=== PATIENT | male | born 1955 | race African-American/Black ===

== ENCOUNTER 2017-08-25 03:25 | Observation (INO) | payer OTHER ==
[~2017-08-25] VITALS: Ht 177.8 cm; Wt 102.3 kg
--- NOTE | ~2017-08-25 | EC ---
PATIENT:BERNARDA GUADARRAMA DATE OF SERVICE: 08/25/17 SEX: M MEDICAL RECORD: [id number] DATE OF : 53 LOCATION:D.M2 D.212 AGE OF PATIENT: 61 ADMISSION DATE: 08/25/17 REFERRING PHYSICIAN: INTERPRETING PHYSICIAN: LANA MORTENSEN MD ECHOCARDIOGRAM REPORT ECHO CHARGES 4 ECHO COMPLETE CLINICAL DIAGNOSIS: CHEST PAIN, HX OF HTN ECHOCARDIOGRAPHIC MEASUREMENTS (adult normal given) AC root (d.<3.7cm) 3.4 cm LV Septum d (<1.2 cm> 1.6 cm Valve Excursion 1.8 cm LV Septum (systole) 1.8 cm Left Atria (s.<4.0cm> 4.8 cm LVPW d(<1.2cm) 1.8 cm RV (d.<2.3cm) 3.3 cm LVPW (sytole) 2.2 cm LV diastole(<5.6CM) 5.0 cm MV E-F(>70mm/sec) cm LV systole 3.6 cm LVOT Diameter 2.0 cm MV exc.(>10mm) 1.7 cm Est.ejection fraction (50-75%) % Pericardial Effusion N DOPPLER: LVIT cm/sec A 86.0 cm/sec E 61.0 cm/sec LA cm/sec RVSP 32 mmHg LVOT 83 cm/sec AOP1/2T 262 m/s Asc. Ao 121 cm/sec RVOT 65 cm/sec RA cm/sec PA 95 cm/sec AV Gradient Peak 5.90 mmHg AV Mean 3.23 mmHg AV Area 2.2 cm MV Gradient Peak 4.16 mmHg MV Mean 1.45 mmHg MV Area cm COMMENTS: Center Rep: Mya FISCHER Door Slinger: 1 Dr. Mortensen TAPE# PACS DATE OF SERVICE: 08/26/2017 Echocardiogram FINDINGS: 1. Left ventricular chamber size is within normal limits. Left ventricular systolic function is normal. Overall ejection fraction estimated at 60%. 2. Left atrium, right atrium, and right ventricular chamber sizes are mildly dilated. Left atrium measures 4.8 cm. 3. Valvular structures have normal structure and motion. ECHOCARDIOGRAM REPORT [id number] BERNARDA GUADARRAMA 4. Doppler interrogation reveals mild aortic insufficiency, mild mitral regurgitation, and mild tricuspid regurgitation. No other valvular insufficiency or stenosis. 5. No evidence of pericardial effusion or left ventricular thrombus. TRANSINT:[id number] Voice Confirmation ID: [id number] DOCUMENT ID: [id number] LANA MORTENSEN MD at 1323 CC: [id number] DICTATION DATE: 08/27/17 1016 MAINTENANCE SHOP MANAGER: 08/27/17 1248 DIS IN 08/26/17 [place] [id number] [place] [id number]
[~2017-08-25 03:25] MED LIST: NORVASC10 MG PO; ZESTRIL20 MG PO
[2017-08-25 04:01] LABS: BASOPHILS 0.5 % (0-2); EOSINOPHILS 4.4 % (0-7); HEMATOCRIT 44.6 % (42.0-54.0); HEMOGLOBIN 15.5 g/dL (13.5-17.5); IMMATURE GRANULOCYTES 0.2 % (0-5); LYMPHOCYTES 24.6 % (15-50); MCH 29.8 pg (26.0-34.0); MCHC 34.8 g/dL (31.0-37.0); MCV 85.8 fL (80.0-100.0); MEAN PLATELET VOLUME 11.2 fL (7.4-10.4); MONOCYTES 7.1 % (2-11); NEUTROPHILS 63.2 % (40-80); PLATELET COUNT 172 10x3/uL (130-400); RDW 14.3 % (11.5-14.5); WBC 4.1 10x3/uL (4.8-10.8)
[2017-08-25 04:26] LABS: ALBUMIN 3.7 g/dL (3.4-5.0); ALKALINE PHOSPHATASE 64 U/L (46-116); ALT (SGPT) 33 U/L (10-68); BILIRUBIN - TOTAL 0.73 mg/dL (0.2-1.3); CALCIUM 8.8 mg/dL (8.5-10.1); CARBON DIOXIDE 24.3 mmol/L (21.0-32.0); CHLORIDE - SERUM 102 mmol/L (98-107); CREATININE - SERUM 1.8 mg/dL (0.6-1.3); POTASSIUM - SERUM 3.6 mmol/L (3.5-5.1); PROTEIN - SERUM 6.6 g/dL (6.4-8.2); SODIUM 139 mmol/L (136-145); UREA NITROGEN 16 mg/dL (7-18); eGFR NON AFRICAN AMERICAN 41 mL/min (90-120)
[2017-08-25 04:37] LABS: CALC OSMOLALITY 284 mosm/kg (275-300); CHOLESTEROL, TOTAL 192 mg/dL (0-200); CKMB 1.5 U/L (0.0-3.6); CREATINE KINASE 223 UL (21-232); GLUCOSE 204 mg/dL (74-106); HDL CHOLESTEROL 65 mg/dL (32-96); LDL CHOLESTEROL 113 mg/dL (0-100); LDL-HDL RATIO 1.7 ratio (1.5-3.5); TRIGLYCERIDE 71 mg/dL (30-200); TROPONIN-I < 0.017 ng/mL (0.000-0.060)
[2017-08-25 05:30] LABS: UDS - AMPHET NEGATIVE QUAL (NEGATIVE); UDS - BARB NEGATIVE QUAL (NEGATIVE); UDS - BENZO NEGATIVE QUAL (NEGATIVE); UDS - COCAINE NEGATIVE QUAL (NEGATIVE); UDS - OPIATE NEGATIVE QUAL (NEGATIVE); UDS - PCP NEGATIVE QUAL (NEGATIVE); UDS - THC NEGATIVE QUAL (NEGATIVE)
[2017-08-25 05:33] LABS: APPEARANCE CLEAR (CLEAR); BILIRUBIN NEGATIVE (NEGATIVE); COLOR YELLOW (YELLOW); GLUCOSE 50 mg/dL (NEGATIVE); KETONE NEGATIVE (NEGATIVE); NITRITE NEGATIVE (NEGATIVE); PROTEIN NEGATIVE (NEGATIVE); UROBILINOGEN NORMAL (NORMAL)
[2017-08-25 07:38] VITALS: BP 156/87; Ht 177.8 cm; Wt 102.3 kg
[2017-08-25 08:10] VITALS: BP 151/91
[2017-08-25 10:50] LABS: TROPONIN-I 0.038 ng/mL (0.000-0.060)
[2017-08-25 11:23] VITALS: BP 191/96
[2017-08-25 15:31] VITALS: BP 186/90
[2017-08-25 16:13] LABS: CKMB 1.4 U/L (0.0-3.6); CREATINE KINASE 184 UL (21-232); TROPONIN-I 0.028 ng/mL (0.000-0.060)
[2017-08-25 20:00] VITALS: BP 159/86
[2017-08-25 23:37] LABS: CKMB 0.9 U/L (0.0-3.6); CREATINE KINASE 147 UL (21-232)
[2017-08-26 04:00] VITALS: BP 173/80
[2017-08-26 06:19] LABS: ANION GAP 8.7 mmol/L (8-16); CALCIUM 8.8 mg/dL (8.5-10.1); CARBON DIOXIDE 29.3 mmol/L (21.0-32.0); CREATININE - SERUM 1.4 mg/dL (0.6-1.3)
[2017-08-26 06:26] LABS: BASOPHILS 0.6 % (0-2); EOSINOPHILS 5.9 % (0-7); HEMATOCRIT 46.1 % (42.0-54.0); HEMOGLOBIN 15.1 g/dL (13.5-17.5); IMMATURE GRANULOCYTES 0.6 % (0-5); LYMPHOCYTES 34.8 % (15-50); MCH 28.2 pg (26.0-34.0); MCHC 32.8 g/dL (31.0-37.0); MEAN PLATELET VOLUME 11.5 fL (7.4-10.4); MONOCYTES 9.1 % (2-11); PLATELET COUNT 184 10x3/uL (130-400); RBC 5.36 10x6/uL (4.20-6.10); RDW 14.5 % (11.5-14.5); WBC 3.5 10x3/uL (4.8-10.8)
[2017-08-26 07:42] VITALS: BP 138/74
[2017-08-26 11:26] VITALS: BP 132/76
[2017-08-26] MEDS ORDERED: NORVASC10 MG PO (12:46)
[2017-08-26] MEDS ORDERED: ZESTRIL20 MG PO (12:46)
[2017-08-26] MEDS ORDERED: ASPIRIN325 MG PO (12:47)
== END 2017-08-26 15:51 | disposition home or self-care (01) ==
LOC: D.ER 03:25 → D.M2 05:53 → OBSVTIME 05:53 → D.M2 08-26 15:51
PROVIDERS: Emergency Medicine; Family Medicine
DX: I16.9 Hypertensive crisis, unspecified (principal); E78.5 Hyperlipidemia, unspecified; I24.8 Other forms of acute ischemic heart disease

== ENCOUNTER 2018-12-24 11:30 | Observation (INO) | payer MEDICAID ==
[2018-12-24] VITALS (11 sets, daily range): BP systolic 162–209; BP diastolic 88–132; BMI 31.6
[~2018-12-24] VITALS: Ht 177.8 cm; Wt 99.8 kg
--- NOTE | ~2018-12-24 | OP ---
PATIENT NAME: BERNARDA GUADARRAMA MEDICAL RECORD: [id number] :53 LOCATION:CONG [facility] ADMISSION DATE:12/24/18 SURGEON: BERTHA FLORES MD DATE OF OPERATION: 12/25/2018 PROCEDURE: Left heart catheterization, selective coronary angiography, right radial approach. CATHETERS: Radial sheath, [place] catheter. The procedure was well tolerated. The patient was returned to reeder. Sheath was removed. TR band was placed. FINDINGS: Left ventriculography in 30-degree OCHOA view shows mild global hypo. Overall, LV function minimally reduced at 40% to 45%. CORONARY ANATOMY: LEFT MAIN: Left main is free of disease. LAD: Free of disease in the diagonal system. CIRCUMFLEX: Free of disease in the marginal system. RIGHT CORONARY ARTERY: Dominant artery, gives rise to PDA and this is free of disease. IMPRESSION: Nonischemic probable hypertensive cardiomyopathy. We will start JUANY inhibitor, beta blockade. Suspect LV function with blood pressure control should improve. TRANSINT:[id number] Voice Confirmation ID: [id number] DOCUMENT ID: [id number] BERTHA FLORES MD CC: [id number] DICTATION DATE: 12/25/18 1316 COMPOUNDER FLAVORINGS: 12/25/[address] [facility] [address] [place] [address]
--- NOTE | ~2018-12-24 | HEMODYNAMI ---
PATIENT:BERNARDA GUADARRAMA MEDICAL RECORD: [id number] : 53 [facility] [id number] ADMISSION DATE: 12/24/18 Generatedon:12/25/201813:15 Patient name: BERNARDA GUADARRAMA Patient #: [id number] SSN: DO B: 1955 Date of study: 12/25/2018 Page: Of Hemodynamic Procedure Report Patient Data Patient Demographics Procedure consent was obtained First Name: BERNARDA Gender: Male Last Name: THIERRY : 1955 Middle Initial: OMAR Age: 63 year(s) Patient #: [id number] Race: Black Additional ID: [id number] Contact details [address]: [address] [place] [address] State: [place] City: [place] Zip code: [address] Admission Admission Data Admission Date: 12/24/2018 Admission Time: 16:40 Room #: D.2122 Lab Results Lab Result Date: 12/25/2018 Lab Result Time: 0:00 Biochemistry Name Units Result Min Max BUN mg/dl 14 --(--*-)-- 7 18 Creatinine mg/dl 1.6 --(----)-* 0.6 1.3 CBC Name Units Result Min Max Hemoglobin g/dl 15.8 --(--*-)-- 13.5 17.5 Procedure Procedure Types Cath Procedure Diagnostic Procedure LHC LHC w/Coronaries Procedure Description Procedure Date Procedure Date: 12/25/2018 Procedure Start Time: 13:04 Procedure End Time: 13:11 Procedure Staff Name Function Mj Castano MD Performing Physician Sarah Paiz RT Monitor Haven Solis RT Scrub Ivelisse Montalvo RN Nurse Procedure Data Cath Procedure Fluoroscopy Diagnostic fluoroscopy Total fluoroscopy Time: 2.3 time: 2.3 min min Diagnostic fluoroscopy Total fluoroscopy dose: 583 dose: 583 mGy mGy Contrast Material Contrast Material Type Amount (ml) Isovue 300 52 Entry Location Entry Primary Successful Side Size Upsize Upsize Entry Closure Anderson ccessful Closure Location (Fr) 1 (Fr) 2 (Fr) Remarks Device Remarks Radial Right 6 Fr Mechanical artery Short Compression Estimated blood loss: 5 ml Diagnostic catheters Device Type Used For End Catheter Placement DIAGNOSTIC [place] 110cm 5 Multi-vessel Fr catheter ([id number]) Angiography Procedure Complications No complications Procedure Medications Medication Administration Route Dosage 0.9% NaCl I.V. 100 ml/hr Oxygen etCO2 Nasal cannula 2 l/min Lidocaine 2% added to field 20 Heparin Flush Bag added to field 2 bags (1000units/500ml NS) Radial Cocktail added to field 1 syringe (Verapamil 2mg/Nitro 400mcg/Heparin 1500units) Versed I.V. 2 mg Fentanyl I.V. 50 mcg Fentanyl I.V. 50 mcg Hemodynamics Rest HGB: 15.8 (g/dl) Heart Rate: 65 (bpm) Pressure Samples Time Site Value (mmHg) Purpose Heart Use Rate(bpm) 13:06 LV 118/3,1 Snapshot 115 Gradients Valve Time Site Site Mean SEP/DFP Peak To Heart Use 1 2 (mmHg) (sec/min) Peak Rate (mmHg) (bpm) Aortic 13:07 LV AO 79 Snapshots Pre Cath Intra NCS Post Cath Vital Signs Time Heart Resp SPO2 etCO2 NIBP (mmHg) Rhythm Pain Sedation Rate (ipm) (%) (mmHg) Status Level (bpm) 12:52:45 66 26 98 30.8 Measuring NSR 0 (11) 10(A) , No pain 12:53:53 66 17 96 33 186/107(163) NSR 0 (11) 10(A) , No pain 12:58:37 65 16 98 1.5 185/96(130) NSR 0 (11) 10(A) , No pain 13:03:24 59 11 98 27 178/91(165) NSR 0 (11) 9(A) , No pain 13:08:07 74 16 97 22.5 162/102(130) NSR 0 (11) 10(A) , No pain 13:12:43 62 19 90 36 162/89(115) NSR 0 (11) 10(A) , No pain Medications Time Medication Route Dose Verified Delivered Reason Notes E ffectiveness by by 12:51:06 0.9% NaCl I.V. 100 Mj [place]o used for ml/hr St Hugo Montalvo procedure RN 12:51:14 Oxygen etCO2 2 l/min Mj [place] used for Nasal [facility] procedure cannula RN 12:51:19 Lidocaine 2% added 20ml Mj Barker for local to vial [facility] anesthetic field MD B[place] 12:51:24 Heparin Flush added 2 bags Mj Barker used for Bag to [facility] procedure (1000units/500ml field MD [place] NS) 12:51:38 Radial Cocktail added 1 Mj Barker used for (Verapamil to syringe [facility] procedure 2mg/Nitro field MD [place] 400mcg/Heparin 1500units) 12:56:09 Versed I.V. 2 mg Mj [place] for EyadHugo Montalvo sedation RN 12:56:20 Fentanyl I.V. 50 mcg Mj [place] for EyadHugo Montalvo sedation RN 13:02:47 Fentanyl I.V. 50 mcg Mj [place] for [place] sedation gauge machine operator Log Time Note 12:22:14 Diagnostic Cath Status : Elective 12:22:33 Sarah Paiz RT(R) sent for patient. Start room use. 12:22:34 Time tracking: Regular hours (M-F 7:00 - 5:00) 12:22:38 Plan of Care:Hemodynamics will remain stable., Cardiac rhythm will remain stable., Comfort level will be maintained., Respiratory function will remain adequate., Patient/ family verbilizes understanding of procedure., Procedure tolerated without complication., Recovers from procedure without complications.. 12:26:43 Signed procedure consent form obtained from patient. 12:43:10 Patient received from Med II to CCL 1 Alert and oriented. Tansferred to table in Supine position. 12:43:11 Warm blankets applied, and elise hugger turned on for patient comfort. 12:43:12 Correct patient and procedure confirmed by team. 12:43:12 ECG and BP/O2 sat monitors applied to patient. 12:50:57 Vital chart was started 12:51:06 0.9% NaCl 100 ml/hr I.V. was administered by Ivelisse Montalvo RN; used for procedure; 12:51:14 Oxygen 2 l/min etCO2 Nasal cannula was administered by Ivelisse Montalvo RN; used for procedure; 12:51:19 Lidocaine 2% 20ml vial added to field was administered by Mj Castano MD; for local anesthetic; 12:51:24 Heparin Flush Bag (1000units/500ml NS) 2 bags added to field was administered by Mj Castano MD; used for procedure; 12:51:38 Radial Cocktail (Verapamil 2mg/Nitro 400mcg/Heparin 1500units) 1 syringe added to field was administered by Mj Castano MD; used for procedure; 12:53:57 Baseline sample Acquired. 12:54:01 Rhythm: sinus rhythm 12:54:03 Full Disclosure recording started 12:54:07 H&P Date Dictated: 12/25/2018 Within 30 days and on chart., H&P Addendum completed by physician on day of procedure. (MUST COMPLETE FOR ALL OUTPATIENTS). 12:54:09 Pre-procedure instructions explained to patient. 12:54:09 Pre-op teaching completed and patient verbalized understanding. 12:54:10 Family in waiting room. 12:54:12 Patient NPO since Midnight. 12:54:14 Is the patient allergic to Iodine/contrast media? No. 12:54:15 Was the patient premedicated? No 12:54:17 Is patient on blood thinner?No 12:54:18 Patient diabetic? No. 12:54:21 Previous problem with sedation/anesthesia? No ? 12:54:23 Snore? Yes 12:54:24 Sleep apnea? No 12:54:25 Deviated septum? No 12:54:26 Opens mouth fully? Yes 12:54:27 Sticks out tongue? Yes 12:54:29 Airway obstruction? No ? 12:54:40 Dentures? Yes partials;in tight 12:54:45 Pre procedure: right dorsailis pedis pulse 2+ Normal; easily identifiable; not easily obliterated 12:54:47 Pre procedure: left dorsailis pedis pulse 2+ Normal; easily identifiable; not easily obliterated 12:54:48 Patient pain scale 0/10 ?. 12:54:55 IV patent on arrival in left forearm with 0.9% NaCl at [facility]. 12:54:58 Lab results completed and on chart. 12:55:03 Right Radial & Right Groin area was prepped with chlora-prep and draped in sterile fashion 12:55:04 Alarms reviewed by R. N. 12:55:05 Sharps counted by scrub and verified by R.N. 12:55:06 Physician arrived 12:55:07 --------ALL STOP TIME OUT------ 12:55:07 Final Timeout: patient, procedure, and site verified with staff and physician. All members of the team are in agreement. 12:55:09 Right Radial & Right Groin site verified by team. 12:55:13 Maximum allowable Isovue 300 dose 300ml. Physician notified. (300ml for normal creatinines. For patients with creatinine of 1.7 or higher multiply weight(kg) x 5 divided by creatinine.) 12:55:23 Fire Safety Assessment: A--An alcohol-based skin anteseptic being used preoperatively., C--Open oxygen or nitrous oxide is being used., D--An ESU, laser, or fiber-optic light is being used., E--There are other possible contributors. 12:55:28 Physical assessment completed. ASA score P 2 - A patient with mild systemic disease as per Mj Castano MD. 12:55:32 Sedation plan: IV Moderate Sedation Medication:Versed, Fentanyl 12:55:39 Use device set Radial Dx or PCI 12:55:41 ACIST Syringe (81195) opened to sterile field. 12:55:41 Medline Cath Pack ([id number]) opened to sterile field. 12:55:41 Bag Decanter (2002) opened to sterile field. 12:55:42 DIAGNOSTIC WIRE .035 260cm J wire (649753) opened to sterile field. 12:55:42 ACIST Hand Control (00580) opened to sterile field. 12:55:43 ACIST Manifold (15788) opened to sterile field. 12:55:43 Tegaderm 4 x 4 (1626W) opened to sterile field. 12:55:44 MBrace Wrist Support (208969819) opened to sterile field. 12:55:45 SHEATH 6FR Slender (65-1060) opened to sterile field. 12:56:09 Versed 2 mg I.V. was administered by Ivelisse Montalvo RN; for sedation; 12:56:20 Fentanyl 50 mcg I.V. was administered by Ivelisse Montalvo RN; for sedation; 12:57:37 Lab Result : Hemoglobin 15.8 g/dl 12:57:37 Lab Result : Creatinine 1.6 mg/dl 12:57:37 Lab Result : BUN 14 mg/dl 13:02:47 Fentanyl 50 mcg I.V. was administered by Ivelisse Montalvo RN; for sedation; 13:03:41 Procedure started. 13:04:00 Local anesthetic to right radial artery with Lidocaine 2% by Mj Castano MD.INITIAL ACCESS ONLY 13:04:19 A 6 Fr Short sheath was inserted into the Right Radial artery 13:04:31 A DIAGNOSTIC [place] 110cm 5 Fr catheter (858700) was advanced over the wire and used for Multi-vessel Angiography. 13:07:05 LV hemodynamics recorded. 13:07:06 LV gram done using OCHOA 13:07:10 Injector settings: Ml/sec: 5, Volume: 15, 13:07:22 EF : 40 % 13:08:18 RCA angiography performed. 13:08:22 Injector settings: Ml/sec: 3, Volume: 6, 13:08:34 LCA angiography performed. 13:08:37 Injector settings: Ml/sec: 3, Volume: 6, 13:09:33 Catheter removed. 13:10:02 TR BAND Large ([id number]) opened to sterile field. 13:10:15 Sheath removed intact; hemostasis achieved with Mechanical Compression to the Right Radial artery. 13:10:17 Procedure ended.(Physican Out) 13:10:42 Fluoroscopy time 02.30 minutes. 13:10:46 Flurop Dose total: 583 13:10:46 Fluoroscopy dose: 583 mGy 13:10:50 Contrast amount:Isovue 300 52ml. 13:10:51 Sharps counted by scrub and verified by R.N. 13:10:55 TR band inflated with 12cc of air. 13:11:00 Insertion/operative site no bleeding no hematoma. 13:11:05 Post right radial artery:stable 13:11:06 Post Procedure Pulses reassessed and unchanged 13:11:09 Post procedure rhythm: unchanged. 13:11:12 Estimated blood loss: 5 ml 13:11:14 Post procedure instruction explained to patient.Patient verbalizes understanding. 13:11:14 Patient needs reinforcement of post procedure teaching. 13:11:21 Procedure and supply charges have been captured, reviewed, submitted and are correct. 13:11:26 Procedure Complication : No complications 13:11:30 Vital chart was stopped 13:11:34 See physician's report for complete and final results. 13:11:43 Report given to Pre/Post Procedure Room. 13:11:46 Patient transfered to Pre/Post Procedure Room with Stretcher. 13:11:48 Procedure ended. 13:11:48 Full Disclosure recording stopped 13:11:52 End room use (Document Last) Device Usage Item Name Manufacture Quantity Catalog Hospital Part Current Minimal Lot# / Number Charge Number Stock Stock Serial# Code ACIST Acist 1 22689 776908 286926 396786 20 Syringe Medical (43050) Systems Inc Medline Medline 1 [id number] 380809 96861 174845 5 Cath Pack ([id number]) Bag Microtek 1 2001S 294594 41089 561024 5 Decanter Medical Inc. () DIAGNOSTIC [place] 1 303927 663411 431176 550527 30 WIRE .035 260cm J wire (516516) ACIST Hand Acist 1 59962 211676 037030 978401 5 Control Medical (96285) Systems Inc ACIST Acist 1 49872 357512 378965 009935 5 Manifold Medical (44164) Systems Inc Tegaderm 4 3M 1 1626W 263914 315099 995572 5 x 4 (1626W) MBrace Advanced 1 140-0250-00 912143 30472 016120 5 Wrist Vascular Support Dynamics ([id number]) SHEATH 6FR Terumo 1 [id number] 404284 965545 055629 5 Slender (80-1060) DIAGNOSTIC Terumo 1 40-5013 488031 261562 793549 5 [place] 110cm 5 Fr catheter (680896) TR BAND Terumo 1 [id number] 829986 697715 557291 40 Large ([id number]) Signature Audit [place] Stage Time Signature Unsigned Intra-Procedure 12/25/2018 Sarah Paiz 1:15:15 PM RT(R) Signatures Monitor : Sarah Paiz RT Signature : Date : Time : [facility] [address] [place] [address]
[~2018-12-24 11:30] MED LIST changes: +ASPIRIN325 MG PO
[2018-12-24 11:57] LABS: EOSINOPHILS 7.9 % (0-7); HEMATOCRIT 46.6 % (42.0-54.0); HEMOGLOBIN 15.8 g/dL (13.5-17.5); LYMPHOCYTES 33.2 % (15-50); MCH 28.6 pg (26.0-34.0); MCHC 33.9 g/dL (31.0-37.0); MCV 84.3 fL (80.0-100.0); MEAN PLATELET VOLUME 10.8 fL (7.4-10.4); MONOCYTES 7.9 % (2-11); PLATELET COUNT 213 10x3/uL (130-400); RBC 5.53 10x6/uL (4.20-6.10); RDW 13.9 % (11.5-14.5)
[2018-12-24 12:07] LABS: INR 0.98 (0.85-1.17); PROTIME 12.5 SECONDS (11.6-15.0)
--- NOTE | 2018-12-24 12:08 | NUR ---
PT STATES THAT LEFT SIDED CHEST PRESSURE AND SOB IMPROVED FOLLOWING FIRST SL NITRO, RATED DISCOMFORT 7/10, REDUCED TO 3/10 FOLLOWING FIRST DOSE. WILL CONTINUE TO MONITOR FOLLOWING SECOND DOSE OF SL NITRO.
[2018-12-24 12:10] LABS: ALBUMIN 3.9 g/dL (3.4-5.0); ALKALINE PHOSPHATASE 50 U/L (46-116); ALT (SGPT) 60 U/L (10-68); BILIRUBIN - TOTAL 0.79 mg/dL (0.2-1.3); CALC OSMOLALITY 279 mosm/kg (275-300); CALCIUM 9.3 mg/dL (8.5-10.1); CARBON DIOXIDE 29.6 mmol/L (21.0-32.0); CHLORIDE - SERUM 103 mmol/L (98-107); CREATININE - SERUM 1.6 mg/dL (0.6-1.3); GLUCOSE 145 mg/dL (74-106); POTASSIUM - SERUM 3.8 mmol/L (3.5-5.1); PROTEIN - SERUM 7.4 g/dL (6.4-8.2); SODIUM 138 mmol/L (136-145); UREA NITROGEN 14 mg/dL (7-18); eGFR NON AFRICAN AMERICAN 46 mL/min (90-120)
[2018-12-24 12:20] LABS: CKMB 2.1 U/L (0.0-3.6); CREATINE KINASE 179 UL (21-232); MAGNESIUM - SERUM 2.2 mg/dL (1.8-2.4); PRO BNP 501 pg/mL (0-125)
[2018-12-24 12:21] LABS: TROPONIN-I < 0.017 ng/mL (0.000-0.060)
--- NOTE | 2018-12-24 14:11 | NUR ---
PT OBSERVED SITTIG IN BED, HIGH CONTI'S, RESPIRATIONS EVEN AND UNLABORED. NO SIGNS OF DISTRESS. CALL LIGHT IN REACH, WILL CONTINUE TO MONITOR.
[2018-12-24 15:32] LABS: CKMB 1.3 U/L (0.0-3.6); CREATINE KINASE 163 UL (21-232); TROPONIN-I < 0.017 ng/mL (0.000-0.060)
--- NOTE | 2018-12-24 17:15 | NUR ---
WHEN THIS NURSE CALLED REPORT TO [place], RECEIVING NURSE AT 1656 PT'S BP: 177/97. THIS NURSE REASSESSED BP APPROX. 5 MIN AGO PRIOR TO TRANSPORTING PT AND BP: 192/109. EDP NOTIFIED AND CHARGE NURSE NOTIFIED OF INCREASED BP. THIS NURSE INSTRUCTED TO CONTINUE WITH TRANSPORT TO ASSIGNED ROOM 2121. RELAY TELEGRAPHER NOTIFIED BY CHARGE NURSE MOISES Ramos RN AND STATED THAT PT MAY BE TRANSPORTED TO ASSIGNED ROOM.
[2018-12-24 17:32] LABS: CKMB 1.7 U/L (0.0-3.6); CREATINE KINASE 172 UL (21-232)
[2018-12-24 17:33] LABS: TROPONIN-I < 0.017 ng/mL (0.000-0.060)
--- NOTE | 2018-12-24 18:14 | NUR ---
RECIEVED FROM ER. B/P STILL HIGH AT 209/132. EMILIANO PATERSON SUPERVISIOR NOTIFIED OF FINDINGS. STATED THE FLOOR STAFF NEEDED TO CALL THE DOCTOR. DR ELLIOTT CALLED AND ORDERS RECIEVED. REPORT FROM ER BEFORE BRING THE PT THAT B/P WAS 177/97. PT IS ALERT AND ORIENTED. C/O OF SOME DIZZINESS AND A HEADACHE. LEFT HAND IV WITH NS AT KV0. TELEMERTY SHOWS SR 75. WILL MONITOR
--- NOTE | 2018-12-24 19:10 | NUR ---
BEDSIDE REPORT RECEIVED. PT IS AAO. WILL CALL FOR ASSIST WHEN NEEDED. NAME AND DATE PLACED ON BOARD. LEFT AC PIV INFUSING ORDERED. PT WILL CALL FOR ASSIST WHEN NEEDED. WILL CPOC
--- NOTE | 2018-12-24 21:28 | NUR ---
EDUCATION PROVIDED ON NIGHT MEDICATIONS. PT VERBALIZED UNDERSTANDING AND DENIES ANY QUESTIONS. WILL CPOC
--- NOTE | 2018-12-24 21:30 | NUR ---
ADMIT HISTORY COMPLETE.
--- NOTE | 2018-12-24 22:00 | NUR ---
CONSENTS SIGNED AND IN CHART. EXPLAINED PROCEDURE AND ANSWERED QUESTIONS AND CONCERNS. PT VERBALIZED UNDERSTANDING AND DENIES ANY QUESTIONS OR CONCERNS AT THIS TIME. CONSENTS PLACED INTO CHART. PT WILL CALL FOR ASSIST WHEN NEEDED. WILL CPOC
--- NOTE | 2018-12-24 23:44 | NUR ---
BP IS 176/100 PRN BLOOD PRESSURE MEDICATION GIVEN. PT DENIES ANY NEEDS. DENIES ANY QUESTIONS OR CONCERNS. WILL CPOC
[2018-12-25] VITALS: BP 176/100
[2018-12-25 01:21] LABS: CKMB 1.3 U/L (0.0-3.6); CREATINE KINASE 131 UL (21-232); TROPONIN-I 0.024 ng/mL (0.000-0.060)
--- NOTE | 2018-12-25 04:18 | NUR ---
I have reviewed this patient and I concur with the Shift Assessment completed by the Licensed Practical Nurse today this shift.
[2018-12-25 04:30] VITALS: BP 143/87
[2018-12-25 07:00] LABS: ALBUMIN 3.3 g/dL (3.4-5.0); ALKALINE PHOSPHATASE 44 U/L (46-116); ALT (SGPT) 45 U/L (10-68); BILIRUBIN - TOTAL 0.93 mg/dL (0.2-1.3); CALC OSMOLALITY 281 mosm/kg (275-300); CALCIUM 8.6 mg/dL (8.5-10.1); CHLORIDE - SERUM 104 mmol/L (98-107); CKMB 0.9 U/L (0.0-3.6); CREATINE KINASE 116 UL (21-232); CREATININE - SERUM 1.5 mg/dL (0.6-1.3); GLUCOSE 96 mg/dL (74-106); POTASSIUM - SERUM 3.7 mmol/L (3.5-5.1); PROTEIN - SERUM 6.6 g/dL (6.4-8.2); SODIUM 141 mmol/L (136-145); UREA NITROGEN 16 mg/dL (7-18); eGFR NON AFRICAN AMERICAN 50 mL/min (90-120)
[2018-12-25 07:02] LABS: BASOPHILS 0.8 % (0-2); EOSINOPHILS 8.3 % (0-7); HEMATOCRIT 45.5 % (42.0-54.0); HEMOGLOBIN 14.9 g/dL (13.5-17.5); IMMATURE GRANULOCYTES 0.3 % (0-5); LYMPHOCYTES 31.5 % (15-50); MCH 27.9 pg (26.0-34.0); MCHC 32.7 g/dL (31.0-37.0); MEAN PLATELET VOLUME 11.1 fL (7.4-10.4); MONOCYTES 8.3 % (2-11); NEUTROPHILS 50.8 % (40-80); PLATELET COUNT 196 10x3/uL (130-400); RBC 5.35 10x6/uL (4.20-6.10); WBC 3.6 10x3/uL (4.8-10.8)
--- NOTE | 2018-12-25 07:29 | NUR ---
PT DENIES ANY NEEDS. NO S/S OF DISTRESS. HAS BEEN NPO SINCE MIDNIGHT, IS ALOUD A LIGHT BREAKFAST,. PT WILL CALL FOR ASSIST WHEN NEEEDED. WILL CPOC
--- NOTE | 2018-12-25 07:30 | NUR ---
ASSESSMENT COMPLETED. ALERT AND ORIENTED. TELEMERTY SHOWS SR. LEFT HAND SL. NPO FOR CATH. FAMILY AT BEDSIDE. SR UP WITH FAMILY AT BEDSIDE
[2018-12-25 09:40] VITALS: BP 167/99
[2018-12-25 12:33] VITALS: Ht 177.8 cm; Wt 99.8 kg
[2018-12-25 13:14] VITALS: BP 167/81
--- NOTE | 2018-12-25 13:37 | NUR ---
PT WENT TO [employer]. WILL BE DISCHARGED FROM THERE POST CATH
--- NOTE | 2018-12-25 13:40 | NUR ---
PATIENT RESTING, VSS ON 2L NC. RIGHT TR BAND IN PLACE, NO S/S OF BLEEDING OR HEMATOMA. NO C/O PAIN, NUMBNESS, OR TINGLING. NO N/V.
--- NOTE | 2018-12-25 13:42 | MORECARE ---
CASE MANAGEMENT DISCHARGE SUMMARY PATIENT: BERNARDA GUADARRAMA UNIT: [id number] ADM DATE: 12/24/18 AGE: 63 : [birth year] SEX: M ROOM/BED: D.2122 AUTHOR: ANTOINETTE KRISHNAMURTHY PHYSICIAN: REFERRING PHYSICIAN: BERTHA FLORES MD DATE OF SERVICE: 12/25/18 Discharge Plan Patient Name: BERNARDA GUADARRAMA [facility] [facility] 1955 Planned Disposition: Home Anticipated Discharge Date: 12/25/18 Discharge Date: Expected LOS: 1 Initial Reviewer: [email or web address] Initial Review Date: 12/25/2018 Generated: 12/25/18 2:41 pm Patient Name: BERNARDA GUADARRAMA Page [id number] at 1342 All edits/amendments must be made on the electronic document DICTATION DATE: 12/25/18 1341 MOLDING MACHINE OPERATOR HELPER: GURPREET 12/25/18 1341 RPT#: [id number] DC DATE: STATUS: ADM IN [facility] [address] [place] [address] END OF REPORT
[2018-12-25] MEDS ORDERED: HYDROCHLOROTHIA25 MG PO (13:44)
[2018-12-25] MEDS ORDERED: BISOPROLOL-HCTZ1 TA5 PO (13:46)
[2018-12-25] MEDS ORDERED: LISINOPRIL40 MG PO (13:46)
--- NOTE | 2018-12-25 14:10 | NUR ---
BEGIN AIR REMOVAL PROTOCOL FOR TR BAND, 3CC OF AIR REMOVED. NO S/S OF BLEEDING OR HEMATOMA. PATIENT EATING SANDWICH AND DRINKING WATER, NO N/V. VSS ON ROOM AIR. FAMILY PRESENT AT BEDSIDE.
--- NOTE | 2018-12-25 14:40 | NUR ---
3CC OF AIR REMOVED FROM TR BAND, NO S/S OF BLEEDING OR HEMATOMA. NO C/O PAIN, NUMBNESS, OR TINGLING. VSS ON ROOM AIR.
--- NOTE | 2018-12-25 15:10 | NUR ---
REMAINING AIR REMOVED FROM TR BAND, NO S/S OF BLEEDING OR HEMATOMA. NO C/O PAIN, NUMBNESS, OR TINGLING. VSS ON ROOM AIR. IV REMOVED. WRITTEN AND VERBAL EDUCATION GIVEN TO PATIENT REGARDING DISCHARGE INSTRUCTIONS AND MEDICATION COMPLIANCE, PATIENT VOICES UNDERSTANDING.
--- NOTE | 2018-12-25 15:30 | NUR ---
PATIENT TRANSPORTED VIA WHEELCHAIR TO CAR WITH FAMILY DRIVING, ALL BELONGINGS WITH PATIENT. RIGHT RADIAL DRESSING IS CDI, NO S/S OF BLEEDING OR HEMATOMA.
== END 2018-12-25 15:15 | disposition home or self-care (01) ==
LOC: D.ER 11:30 → OBSVTIME 16:40 → D.M2 16:40 → D.CLR 16:40 → D.EDHOLD 16:40 → D.M2 16:47 → D.CLR 12-25 13:25
PROVIDERS: Family Medicine; ADMIT Internal Medicine Interventional Cardiology; ATTEND Internal Medicine Interventional Cardiology
DX: I16.0 Hypertensive urgency (principal); E78.5 Hyperlipidemia, unspecified; I42.9 Cardiomyopathy, unspecified; E66.9 Obesity, unspecified; Z68.31 Body mass index [BMI] 31.0-31.9, adult

== ENCOUNTER → 2019-01-28 13:01 | Outpatient (CLI) | payer MEDICAID ==
[2018-12-25 12:33] VITALS: BMI 31.5
[~2019-01-28 13:01] MED LIST changes: +BISOPROLOL-HCTZ1 TA5 PO; +HYDROCHLOROTHIA25 MG PO; +LISINOPRIL40 MG PO
--- NOTE | 2019-01-29 13:44 | EC ---
PATIENT:BERNARDA GUADARRAMA DATE OF SERVICE: 01/28/19 SEX: M MEDICAL RECORD: [id number] DATE OF : 53 LOCATION:[facility] AGE OF PATIENT: 63 ADMISSION DATE: 01/28/19 REFERRING PHYSICIAN: INTERPRETING PHYSICIAN: LANA MORTENSEN MD ECHOCARDIOGRAM REPORT ECHO CHARGES 4 ECHO COMPLETE Date: 01/28/19 CLINICAL DIAGNOSIS: CARDIOMYOPATHY/HTN ECHOCARDIOGRAPHIC MEASUREMENTS (adult normal given) AC root (d.<3.7cm) 3.8 cm LV Septum d (<1.2 cm> 1.8 cm Valve Excursion 2.1 cm LV Septum (systole) 2.4 cm Left Atria (s.<4.0cm> 3.6 cm LVPW d(<1.2cm) 1.4 cm RV (d.<2.3cm) 2.2 cm LVPW (sytole) 2.0 cm LV diastole(<5.6CM) 5.9 cm MV E-F(>70mm/sec) cm LV systole 3.8 cm LVOT Diameter 2.0 cm MV exc.(>10mm) cm Est.ejection fraction (50-75%) % DOPPLER: LVIT cm/sec A 54.0 cm/sec E 50.0 cm/sec LA cm/sec RVSP 28.0 mmHg LVOT 95.0 cm/sec AOP1/2T m/s Asc. Ao 134 cm/sec RVOT 51.0 cm/sec RA cm/sec PA 86.0 cm/sec AV Gradient Peak 7.2 mmHg AV Mean 3.8 mmHg AV Area 2.3 cm MV Gradient Peak 2.0 mmHg MV Mean 0.50 mmHg MV Area cm COMMENTS: OP - HC Manager Content: Demi LUOE Drug Clerk: 1 Dr. Mortensen TAPE# PACS Pericardial Effusion N DATE OF SERVICE: 01/28/2019 PROCEDURE: Echocardiogram. FINDINGS: 1. Left ventricular chamber size is mildly dilated. Left ventricular systolic function is normal. Overall ejection fraction estimated at 55%. 2. Left atrium is within normal limits at 3.6 cm. Right atrium and right ventricular chamber sizes are mildly dilated. 3. Valvular structures have normal structure and motion. ECHOCARDIOGRAM REPORT [id number] BERNARDA GUADARRAMA 4. Doppler interrogation reveals trace aortic insufficiency, mild mitral regurgitation, mild tricuspid regurgitation, no other valvular insufficiency or stenosis. Pulmonary systolic pressure is normal estimated 28 mmHg. 5. No evidence of pericardial effusion or left ventricular thrombus. TRANSINT:[id number] Voice Confirmation ID: [id number] DOCUMENT ID: [id number] LNAA MORTENSEN MD at 1344 CC: [id number] DICTATION DATE: 01/29/19 1059 DAMAGE APPRAISER: 01/29/19 1116 DEP CLI 01/28/19 [place] [id number]
== END | disposition home or self-care (01) ==
LOC: D.HCCARDIO 13:01
PROVIDERS: ATTEND Internal Medicine Interventional Cardiology
DX: I42.0 Dilated cardiomyopathy (principal)

== ENCOUNTER → 2019-08-30 17:45 | Outpatient (CLI) | payer MEDICARE, MEDICAID ==
[2018-12-25 12:33] VITALS: BMI 31.5
[2019-08-30 18:54] LABS: CHOL - HDL RATIO 5.3 ratio (2.3-4.9); LDL-HDL RATIO 3.9 ratio (1.5-3.5)
== END | disposition home or self-care (01) ==
LOC: D.LABREF 17:45
PROVIDERS: ATTEND Internal Medicine Interventional Cardiology
DX: I10 Essential (primary) hypertension (principal)

== ENCOUNTER → 2020-01-05 18:53 | Outpatient (CLI) | payer OTHER ==
[2018-12-25 12:33] VITALS: BMI 31.5
[2020-01-05 21:50] LABS: CHOL - HDL RATIO 2.6 ratio (2.3-4.9); LDL-HDL RATIO 1.2 ratio (1.5-3.5)
== END | disposition home or self-care (01) ==
LOC: D.LABREF 18:53
PROVIDERS: ATTEND Nurse Practitioner
DX: E78.5 Hyperlipidemia, unspecified (principal)

== ENCOUNTER → 2020-04-04 17:15 | Outpatient (CLI) | payer MEDICARE ==
[2018-12-25 12:33] VITALS: BMI 31.5
[2020-04-04 17:44] LABS: CHOL - HDL RATIO 2.6 ratio (2.3-4.9); LDL-HDL RATIO 1.2 ratio (1.5-3.5)
== END | disposition home or self-care (01) ==
LOC: D.LABREF 17:15
PROVIDERS: ATTEND Nurse Practitioner
DX: E78.5 Hyperlipidemia, unspecified (principal)

== ENCOUNTER 2020-11-05 20:56 | Emergency (ER) | payer OTHER ==
[~2020-11-05] VITALS: Ht 177.8 cm; Wt 108.2 kg
[2020-11-05 20:59] VITALS: BP 154/79; Ht 177.8 cm; Wt 108.2 kg
[2020-11-05] MEDS ORDERED: NORVASC10 MG PO (21:03)
[2020-11-05] MEDS ORDERED: FLOMAX0.4 MG PO (21:03)
[2020-11-05] MEDS ORDERED: METFORMIN HCL500 M1 PO (21:03)
[2020-11-05] MEDS ORDERED: DIOVAN320 MG PO (21:04)
[2020-11-05] MEDS ORDERED: GLIPIZIDE5 MG PO (21:04)
[2020-11-05] MEDS ORDERED: COREG6.25 MG PO (21:05)
[2020-11-05 21:35] LABS: BASOPHILS 0.5 % (0-2); EOSINOPHILS 5.7 % (0-7); HEMATOCRIT 43.6 % (42.0-54.0); HEMOGLOBIN 14.3 g/dL (13.5-17.5); IMMATURE GRANULOCYTES 0.3 % (0-5); LYMPHOCYTE ABS# 1.59 10x3/uL (1.32-3.57); MCH 28.1 pg (26.0-34.0); MCHC 32.8 g/dL (31.0-37.0); MCV 85.8 fL (80.0-100.0); MEAN PLATELET VOLUME 9.9 fL (7.4-10.4); MONOCYTES 9.5 % (2-11); NEUTROPHIL ABS# 1.67 10x3/uL (1.78-5.38); PLATELET COUNT 213 10x3/uL (130-400); RBC 5.08 10x6/uL (4.20-6.10); RDW 14.7 % (11.5-14.5); WBC 3.9 10x3/uL (4.8-10.8)
[2020-11-05 21:47] LABS: ANION GAP 11.5 mmol/L (8-16); CARBON DIOXIDE 27.1 mmol/L (21.0-32.0); CREATININE - SERUM 1.7 mg/dL (0.6-1.3); POTASSIUM - SERUM 3.6 mmol/L (3.5-5.1)
[2020-11-05 21:54] LABS: BILIRUBIN - TOTAL 0.37 mg/dL (0.2-1.3); PROTEIN - SERUM 7.1 g/dL (6.4-8.2)
[2020-11-05 22:05] LABS: BILIRUBIN NEGATIVE (NEGATIVE); KETONE NEGATIVE (NEGATIVE); NITRITE NEGATIVE (NEGATIVE); UROBILINOGEN NORMAL mg/dL (< 2)
[2020-11-05] MEDS ORDERED: ZANAFLEX4 MG PO (23:13)
[2020-11-05] MEDS ORDERED: NAPROXEN250 MG PO (23:13)
== END 2020-11-05 23:35 | disposition home or self-care (01) ==
LOC: D.ER 20:56
PROVIDERS: Family Medicine
DX: S39.012A Strain of muscle, fascia and tendon of lower back, initial encounter (principal); S16.1XXA Strain of muscle, fascia and tendon at neck level, initial encounter; N18.9 Chronic kidney disease, unspecified; R73.9 Hyperglycemia, unspecified; V89.2XXA Person injured in unspecified motor-vehicle accident, traffic, initial encounter; Y93.9 Activity, unspecified; Y92.9 Unspecified place or not applicable; M25.511 Pain in right shoulder; M25.512 Pain in left shoulder; I12.9 Hypertensive chronic kidney disease with stage 1 through stage 4 chronic kidney disease, or unspecified chronic kidney disease